=== PATIENT | male | born 1975 | race Caucasian/White ===

== ENCOUNTER 2016-08-28 20:15 | Emergency (ER) | payer BC ==
[~2016-08-28] VITALS: Ht 180.3 cm; Wt 100.0 kg
[~2016-08-28 20:15] MED LIST: AMPH1TAB33 PO; CEPH500C3 PO; IBUP800T23 PO; NABU500T PO; PERC10TA27 PO
[2016-08-28 20:18] VITALS: BP 143/93; PULSE 96; RESP 16; TEMP 98; O2SAT 97
[2016-08-28 20:26] VITALS: BP 139/89; PULSE 97; RESP 16; TEMP 98.1; O2SAT 99
[2016-08-28] MEDS ORDERED: LISI-519 PO (20:37)
[2016-08-28] MEDS ORDERED: HYDR25TA5 PO (20:37)
[2016-08-28] MEDS ORDERED: htn med PO (20:37)
[2016-08-28] MEDS ORDERED: ADDE15TA PO (20:37)
[2016-08-28] MEDS ORDERED: PERC10TA27 PO (20:37)
--- NOTE | 2016-08-28 21:17 | PD ---
HPI Chief Complaint: Injury Time Seen by Provider: 20:24 Travel History International Travel<30 days: No Contact w/Intl Traveler<30days: No Traveled to known affect area: No History of Present Illness HPI The patient is a 41 year old male who presents to the [facility] emergency department with a history of left second digit numbness, tingling, and pain to the distal aspect that began again last night. He reports that is been persistent since then. 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 He denies any known injury. He denies having any open wounds. He denies having any swelling to the finger. The patient reports that at times it seems to appear to suzanna. He denies having any prior history of symptoms like this. He denies any history of Raynaud's. He denies having any history of autoimmune disorder. The patient denies smoking. I review systems, the patient reports that he did awaken this morning with some chest congestion and a cough. The patient denies any recent fevers, chest pain, shortness of breath, abdominal pain, vomiting, diarrhea, urinary symptoms, or other neurologic symptoms. PFSH Past Medical History Narrative Medical The patient's past medical history is significant for hypertension, history of a pulmonary embolism status post left leg injury after falling off a roof in 2008, history of attention deficit disorder, arthritis, chronic leg pain after his injury. The patient has a history of DVT in the left upper extremity related to a PICC line previously. ADD: Yes Arthritis: Yes Blood Disorders: No Anxiety: No Depression: No Cancer: No Cardiovascular Problems: Yes (htn) High Cholesterol: Yes Chemotherapy: No Diabetes: No Diminished Hearing: No Deep Vein Thrombosis: Yes (PE) Endocrine: No Glaucoma: No Genitourinary: No Hepatitis: No Hiatal Hernia: No Hypertension: Yes Immune Disorder: No Implanted Vascular Access Dvce: Yes Musculoskeletal: Yes (CHRONIC LEG PAIN) Neurologic: No Psychiatric: No Reproductive: No Respiratory: No Immunizations Current: No Radiation Therapy: No Sickle Cell Disease: No Thyroid Disease: No Tetanus Vaccination: < 5 Years PNEUMOCCOCAL Vaccine (Year): 2 Past Surgical History Narrative Surgical The patient's past surgical history is significant for left tibial plateau ORIF , left femur surgery, left hip surgery. Abdominal Surgery: No AICD: No Body Medical Devices: ANTIBIOTIC HAZEL, LEFT FEMUR Cardiac Surgery: No Ear Surgery: No Endocrine Surgery: No Eye Surgery: No Genitourinary Surgery: No Gynecologic Surgery: No Oral Surgery: No Pacemaker: No Thoracic Surgery: No Other Surgery: Yes (ORIF LEFT TIBIAL PLATEAU ) Social History Alcohol Use: Yes (SOCIALLY) Tobacco Use: No Substance Use: No Allergies-Medications (Allergen,Severity, Reaction): Coded Allergies: Penicillin (Verified Allergy, Severe, HIVES, 08/28/16) Uncoded Allergies: CILLINS (Allergy, Severe, 05/03/09) Reported Meds & Prescriptions Reported Meds & Active Scripts Active Reported [htn med] PO DAILY Hydrochlorothiazide 25 Mg Tab 25 Mg PO DAILY Lisinopril 5 Mg Tab 5 Mg PO DAILY Percocet (Oxycodone-Acetaminophen) 10-325 mg Tab 1 Tab PO TID Adderall (Amphetamine-Dextroamphetamine) 15 Mg Tab 15 Mg PO BID Avoid late evening doses. Space doses at least 4 to 6 hours if more than once/day dosing. Review of Systems Except as stated in HPI: all other systems reviewed are Neg General / Constitutional: No: Fever Eyes: No: Visual changes HENT: Positive: Congestion, No: Headaches, Lightheadedness, Sore Throat Cardiovascular: No: Chest Pain or Discomfort Respiratory: Positive: Cough, No: Shortness of Breath Gastrointestinal: No: Abdominal Pain Genitourinary: No: Dysuria Musculoskeletal: Positive: Pain Skin: No Rash Neurologic: Positive: Paresthesia (in the left second digit), Sensory Disturbance (in the left second digit), No: Weakness, Focal Abnormalities, Change in Mentation, Slurred Speech Psychiatric: No: Depression Endocrine: No: Polydipsia Hematologic/Lymphatic: No: Easy Bruising Physical Exam Narrative General: The patient is a well-developed well-nourished male in no acute distress. Head and Neck exam: Head is normocephalic atraumatic. Eyes: Pupils are equal round and reactive to light. Nose: Midline septum with pink mucous membranes Mouth: Dentition unremarkable. Moist mucus membranes. Posterior oropharynx is mildly erythematous. No tonsillar hypertrophy. Uvula midline. Airway patent. Neck: No palpable lymphadenopathy. No nuchal rigidity. No thyromegaly. Cardiovascular: Regular rate and rhythm without murmurs, gallops, or rubs. No pulse deficit to the extremities and simultaneous palpation of his radial arteries while auscultating. Lungs: Clear to auscultation bilaterally. No wheezes, rhonchi, or rales. Abdomen: Soft, without tenderness to palpation in all 4 quadrants of the abdomen. No guarding, rebound, or rigidity. Normal bowel sounds are audible. Extremities: No clubbing, cyanosis, or edema. 2+ pulses in all 4 extremities. On examination of the area of interest, the left hand, the patient has no visible abnormality. No erythema, edema, or coolness to touch of the left second digit compared to the other digits. The patient has less than 3 second capillary refill of the digit. The patient has a palpable pulse in the finger. The patient reports that at this time the symptoms seemed to have improved. The patient has intact sensation of his fingertips. The patient has no change in the coloration of the distal finger. The patient has full range of motion with flexion, extension and abduction of his fingers. The patient has a positive Tinel's sign in the left hand. The patient has a negative Phalen sign. Back: No spinous process tenderness to palpation. No costovertebral angle tenderness to palpation. Neurologic Exam: Grossly nonfocal. Skin Exam: No rash noted. Intact skin that is warm and dry. Data Data Last Documented VS Vital Signs Date Time Temp Pulse Resp B/P Pulse Ox O2 Delivery O2 Flow Rate FiO2 08/28/16 21:25 99 Room Air 08/28/16 20:26 98.1 97 16 139/89 Orders Us Arm Venous Doppler (08/28/16 20:54) Complete Blood Count With Diff (08/28/16 20:54) Basic Metabolic Panel (Bmp) (08/28/16 20:54) Westergren Sedimentation Rate (08/28/16 20:54) Iv Access Insert/Monitor (08/28/16 20:54) Ecg Monitoring (08/28/16 20:54) Oximetry (08/28/16 20:54) Electrocardiogram (08/28/16 21:17) Ketorolac Inj (Toradol Inj) (08/28/16 23:15) Labs Laboratory Tests Test 08/28/16 21:04 White Blood Count 7.5 TH/MM3 Red Blood Count 5.06 MIL/MM3 Hemoglobin 16.1 GM/DL Hematocrit 45.8 % Mean Corpuscular Volume 90.5 FL Mean Corpuscular Hemoglobin 31.7 PG Mean Corpuscular Hemoglobin 35.0 % Concent Red Cell Distribution Width 13.3 % Platelet Count 224 TH/MM3 Mean Platelet Volume 8.2 FL Neutrophils (%) (Auto) 53.6 % Lymphocytes (%) (Auto) 39.0 % Monocytes (%) (Auto) 5.3 % Eosinophils (%) (Auto) 1.4 % Basophils (%) (Auto) 0.7 % Neutrophils # (Auto) 4.0 TH/MM3 Lymphocytes # (Auto) 2.9 TH/MM3 Monocytes # (Auto) 0.4 TH/MM3 Eosinophils # (Auto) 0.1 TH/MM3 Basophils # (Auto) 0.1 TH/MM3 CBC Comment DIFF FINAL Differential Comment Erythrocyte Sedimentation Rate 2 mm/hr Sodium Level 137 MEQ/L Potassium Level 3.6 MEQ/L Chloride Level 101 MEQ/L Carbon Dioxide Level 26.1 MEQ/L Anion Gap 10 MEQ/L Blood Urea Nitrogen 20 MG/DL Creatinine 1.00 MG/DL Estimat Glomerular Filtration 83 ML/MIN Rate Random Glucose 137 MG/DL Calcium Level 8.4 MG/DL [facility] Medical Decision Making Medical Screen Exam Complete: Yes Emergency Medical Condition: Yes Medical Record Reviewed: Yes Differential Diagnosis Raynaud's syndrome, versus fingertip injury, versus infectious process, versus thrombosis, versus carpal tunnel syndrome Narrative Course During the course of the patients emergency department visit, the patients history, examination, and differential diagnosis were reviewed with the patient. The patient had IV access obtained and blood work sent for analysis. The patient was placed on a help desk support with oximetry and blood pressure monitoring. An EKG was ordered. An ultrasound of the left upper extremity was ordered to evaluate for DVT. The patient's EKG shows a sinus rhythm heart rate of 75, no acute ST segment changes. T waves are inverted in lead 3, no ST segment elevation. The patients laboratory studies were reviewed and remarkable for a CBC that is unremarkable, sedimentation rate is 2, BNP is remarkable for a BUN of 20, GFR of 83, glucose 137, calcium 8.4. Radiology studies were reviewed and remarkable for an ultrasound of the left upper extremity that reveals a normal examination, no evidence of thrombosis. The patient was given Toradol 30 mg IV 1 for pain. The patient is instructed to monitor his finger closely for any color change at the distal tip. The patient is instructed to keep his hands warm. The patient is instructed to follow-up with his primary care physician for reexamination in the next 2-3 days. If the symptoms continue and there is no change in the color of his skin he will require additional evaluation for carpal tunnel syndrome. If he continues to have changes in the coloration of the tip of the finger, Raynauds will also need to be ruled out. I explained to him that he would require additional testing to evaluate for possible autoimmune disorder. The patient is resting comfortably and feels better, is alert and in no distress. The patients results and examination findings The repeat examination is unremarkable and benign. The history, exam, diagnostic testing, and current condition do not suggest any significant pathology to warrant further testing, continued ED treatment, admission, or surgical evaluation at this point. The vital signs have been stable. The patient does not have uncontrollable pain, intractable vomiting, or other significant symptoms. The patient's condition is stable and appropriate for discharge. The patient will pursue further outpatient evaluation with a primary care physician or other designated or consulting physician as indicated in the discharge instructions. The patient expressed understanding and was agreeable with this plan. Diagnosis Primary Impression: Finger pain, left Referrals: Primary Care Physician 3 days Additional Instructions: The patient is instructed to take a baby aspirin daily. Disposition: 01 DISCHARGE HOME Condition: Stable Ruby Navarrete MD Aug 28, 2016 21:17
[2016-08-28 21:22] LABS: BASOPHIL # 0.1 TH/MM3 (0-0.2); BASOPHIL % 0.7 % (0.0-2.0); EOSINOPHIL # 0.1 TH/MM3 (0-0.4); EOSINOPHIL % 1.4 % (0.0-4.0); HEMATOCRIT 45.8 % (39.0-51.0); HEMO FLAGS DIFF FINAL; LYMPHOCYTE # 2.9 TH/MM3 (1.0-4.8); MEAN CELL VOLUME 90.5 FL (80.0-100.0); MEAN CORPUSCULAR HEMOGLOBIN 31.7 PG (27.0-34.0); MONO % 5.3 % (0.0-8.0); NEUT % 53.6 % (16.0-70.0); PLATELET COUNT 224 TH/MM3 (150-450); RED BLOOD COUNT 5.06 MIL/MM3 (4.50-5.90); RED CELL DISTRIBUTION WIDTH 13.3 % (11.6-17.2); WHITE BLOOD COUNT 7.5 TH/MM3 (4.0-11.0)
[2016-08-28 21:25] VITALS: O2SAT 99
[2016-08-28 22:11] LABS: BICARBONATE 26.1 MEQ/L (21.0-32.0); POTASSIUM 3.6 MEQ/L (3.5-5.1)
--- NOTE | 2016-08-28 23:11 | RADRPT ---
EXAM DATE/TIME: 08/28/2016 22:46 [facility] COMPARISON: No previous studies available for comparison. INDICATIONS : Left upper extremity pain. MEDICAL HISTORY : Hypercholesterolemia. Hypertension. Arthritis. ADD. Thrombocytopenia. Pulmonary embolism. SURGICAL HISTORY : Orthopedic surgery; left femur, left hip and left tib/fib. ORIF left tibial plateau. ENCOUNTER: Initial ACUITY: 1 day PAIN SCORE: 5/10 LOCATION: Left arm. FINDINGS: There is spontaneous flow documented in the brachial, basilic, cephalic, axillary, and subclavian vei ns. The vessels are compressible and augmentation response is documented. No filling defects are se en. The flow is phasic with respiration. Direction of flow in the jugular vein is caudal. CONCLUSION: Normal examination. Ryland Hutton MD on August 28, 2016 at 23:09 Board Certified Radiologist. This report was verified electronically.
[2016-08-28] MEDS ORDERED: KETOROLAC TROMETHAMINE 30 MG/ML (IVP) VIAL IV PUSH ONE (23:15)
--- NOTE | 2016-08-29 20:10 | EKG ---
Date Performed: 08/28/2016 Time Performed: 21:30:44 PTAGE: 41 years EKG: Sinus rhythm NORMAL ECG PREVIOUS TRACING : 03/04/2008 17.19 Compared to prior tracing no significant change DOCTOR: Joseph Foley Interpretating Date/Time 08/29/2016 20:09:12
== END 2016-08-28 23:43 | disposition home or self-care (01) ==
LOC: NEPE 20:15
DX: M79.645 Pain in left finger(s) (principal); R20.0 Anesthesia of skin; R20.2 Paresthesia of skin; I10 Essential (primary) hypertension; G89.29 Other chronic pain; E78.00 Pure hypercholesterolemia, unspecified
CPT/HCPCS: 80048; 85025; 85652; 93005; 93971; 96374; 99284; J1885